=== PATIENT | female | born 1990 | race Caucasian/White ===

== ENCOUNTER 2021-03-05 13:48 | Emergency (ER) | payer OTHER, SELFPAY ==
[2021-03-05 13:54] VITALS: BP 156/88; PULSE 110; RESP 16; TEMP 37.1; O2SAT 98; BMI 35.4
--- NOTE | 2021-03-05 14:07 | ED_ITS ---
HPI - Chest Pain General: Chief Complaint: Chest Pain Stated Complaint: Chest Pains for a couple days now, weakness Time Seen by Provider: 03/05/21 14:07 History of Present Illness: HPI narrative: Ms. Sloan is a 31-year-old lady without significant past medical history presents to the emergency department due to chest pain. Onset of symptoms was approximately 3 days ago without specific provoking event identified. She endorses left anterior chest pressure occasionally associated with tingling in the left elbow region. She has had a dry cough for a few weeks now however this is not significantly changed or worsened. No other identified typical cardiac features. Patient is a non- smoker, only identifies history on mother side however no known early cardiac disease. Does have a history of irregular heartbeats. No other specific changes in health, exacerbating, or alleviating factors identified. Review of Systems General: Reports: 10 or more systems reviewed and unremarkable except in HPI and below PFSH ED PFSH: Medical History (Updated 03/09/21 @ 20:54 by Paop Lin MD) No significant medical problems Surgical History (Updated 03/09/21 @ 20:54 by Papo Lin MD) No significant past surgical history No significant past surgical history Female Reproductive History: Date of last menstrual period: 02/25/21 Physical Exam Narrative: EXAM NARRATIVE: GENERAL/CONSTITUTIONAL - well-appearing. Eyes -no scleral icterus, no conjunctival injection ENMT - Atraumatic external nose and ears. Moist mucous membranes NECK - supple. trachea midline CARDIOVASCULAR - tachycardic rate and regular rhythm. No peripheral edema RESPIRATORY -clear to auscultation bilaterally. ABDOMEN/GI - Nontender/Nondistended. MSK - Extremities without obvious deformity or tenderness to palpation SKIN - Warm, Dry NEURO - alert and appropriately oriented. Moves all extremities equally. Course ED course: - Patient was seen and evaluated by me at bedside - Patient placed on cardiac monitors, IV access obtained - Initial evaluation notable for tachycardia -Fluids ordered - Labs notable for no leukocytosis, likely mild hemoconcentration. No acute electrolyte abnormality. Troponin negative with >6 hours of symptoms. Covid negative. D-dimer negative. - Imaging notable for no acute findings - Upon serial reexamination after treatment the patient was mildly - Based on patient history, evaluation, labs, and imaging as interpreted the most likely cause of the patient's condition is unspecified chest pain. - The results of ED evaluation were discussed with the patient including prescriptions and/or symptomatic cares (if applicable) including appropriate and responsible use, followup plan, and return precautions. The patient verbalized understanding and felt safe for discharge. - Patient discharged in satisfactory condition. Vital Signs: Vital signs: Vital Signs Temperature 98.7 F 03/05/21 13:54 Pulse Rate 72 03/05/21 17:27 Respiratory Rate 20 H 03/05/21 17:05 Blood Pressure 130/82 03/05/21 17:05 Pulse Oximetry 99 03/05/21 17:27 MDM - Chest Pain MDM Narrative: Medical decision making narrative: Patient presents with 3 days of chest pain, mildly positional left anterior chest. Does not have significant risk factors for early cardiac . D-dimer negative. Appropriate for outpatient evaluation/work-up. Medical Records: Attestation: I reviewed the patient's medical records. Lab Data: Attestation: I reviewed the patient's lab results. Labs: Lab Results 03/05/21 03/05/21 03/05/21 14:34 14:34 14:34 WBC 10.0 10^3/uL 10^3 /uL (4.0-10.0) RBC 5.26 10^6/uL 10^6 /uL (4.1-5.3) Hgb 15.5 g/dL H g/dL (11.5-15.3) Hct 46.2 % % (37.0-47.0) MCV 87.8 fl fl (81-99) MCH 29.5 pg pg (28.0-34.0) MCHC 33.5 g/dL g/dL (30.0-36.0) RDW 12.1 % % (12.1-15.1) Plt Count 267 10^3/cmm 10^3 /cmm (130-400) MPV 11.0 fL H fL (7.4-10.4) Neut % (Auto) 81.1 % % Lymph % (Auto) 13.0 % % [place] % (Auto) 4.2 % % Eos % (Auto) 1.0 % % Baso % (Auto) 0.5 % % Neut # (Auto) 8.14 10^3/uL H 10 ^3/uL (1.8-7.7) Lymph # (Auto) 1.3 10^3/uL 10^3/ uL (0.8-4.8) [place] # (Auto) 0.4 10^3/uL 10^3/ uL (0.2-0.9) Eos # (Auto) 0.1 10^3/uL 10^3/ uL (0.0-0.8) Baso # (Auto) 0.1 10^3/uL 10^3/ uL (0.0-0.1) Nucleated RBC % (a uto) 0 % % Nucleated RBCs # 0.0 /100WBC /100W BC D-Dimer Sodium 138 mmol/L mmol/L (136-145) Potassium 4.6 mmol/L mmol/L (3.5-5.1) Chloride 102 mmol/L mmol/L (98-107) Carbon Dioxide 25 mmol/L mmol/L (22-29) Anion Gap 15.6 (5-19) BUN 13 mg/dL mg/dL (6-20) Creatinine 0.6 mg/dL mg/dL (0.5-0.9) GFR Calculation 117.4 mL/min mL/m in (90-130) Glucose 95 mg/dL mg/dL (65-115) Calculated Osmolal ity 286 mOsm/kg mOsm/ kg (285-295) Calcium 8.9 mg/dL mg/dL (8.5-10.5) Total Bilirubin 0.8 mg/dL mg/dL (0.15-1.2) AST 18 U/L U/L (0-32) ALT 21 U/L U/L (0-33) Alkaline Phosphata se 58 IU/L IU/L (35-105) Troponin T Baselin e 6 ng/L ng/L (0-10) Total Protein 7.5 g/dL g/dL (6.6-8.7) Albumin 4.6 g/dL g/dL (3.5-5.2) Globulin 2.9 g/dL g/dL (1.3-4.6) SARS-CoV-2 Ag (Rap id) 03/05/21 03/05/21 14:34 14:52 WBC RBC Hgb Hct MCV MCH MCHC RDW Plt Count MPV Neut % (Auto) Lymph % (Auto) [place] % (Auto) Eos % (Auto) Baso % (Auto) Neut # (Auto) Lymph # (Auto) [place] # (Auto) Eos # (Auto) Baso # (Auto) Nucleated RBC % (a uto) Nucleated RBCs # D-Dimer <= 0.27 ug/mIFEU ug/mIFEU (0-0.59) Sodium Potassium Chloride Carbon Dioxide Anion Gap BUN Creatinine GFR Calculation Glucose Calculated Osmolal ity Calcium Total Bilirubin AST ALT Alkaline Phosphata se Troponin T Baselin e Total Protein Albumin Globulin SARS-CoV-2 Ag (Rap id) Negative (Negative) EKG Data^: EKG 1: Attestation: I personally reviewed and interpreted this EKG as follows: EKG interpretation date: 03/05/21 EKG interpretation time: 14:06 Interpretation: Twelve-lead EKG shows a regular rhythm at a rate of 78. NE interval 117, QRS duration 94, QTc 389. Normal axis. Interpretation: Sinus rhythm. Short NE interval. EKG 2: Attestation: I personally reviewed and interpreted this EKG as follows: EKG interpretation date: 03/05/21 EKG interpretation time: 17:11 Interpretation: Twelve-lead EKG shows a regular rhythm at a rate of 70. NE interval 135, QRS duration 103, QTc 392. Normal axis. Interpretation: Sinus rhythm. Discharge Plan Discharge Patient Disposition: Home Clinical Impression: Chest pain Condition: Stable Prescriptions: No Action No Known Home Medications RF: 0 Discharge Orders: Discharge ED (Routine); Ordered 03/05/21 Ordered By: Papo Lin Discharge Diet: Usual diet Discharge Activity: Resume usual activity Patient Instructions: Chest Pain (ED) Activity Restrictions/Additional Instructions: Thank you for visiting the emergency department. You were seen and evaluated for chest pain. The exact cause of your symptoms is unclear though does not appear to need inpatient management at this time. Please follow-up with your primary care provider and cardiology. Return to the emergency department for worsening symptoms or anything else that you are concerned about and feel needs emergency department evaluation. Coding Level of Care Code ED Tuberculosis Specialist for Brant Acosta
--- NOTE | 2021-03-05 14:28 | XRR_ITS ---
PROCEDURE INFORMATION: Exam: XR Chest Exam date and time: 03/05/2021 2:28 PM Age: 31 years old Clinical indication: Pain; Chest pressure; Additional info: Chest pain TECHNIQUE: Imaging protocol: XR of the chest. Views: 1 view. COMPARISON: No relevant prior studies available. FINDINGS: Lungs: Unremarkable. No consolidation. Pleural spaces: Unremarkable. No pleural effusion. No pneumothorax. Heart/Mediastinum: Unremarkable. No cardiomegaly. Bones/joints: No acute findings. XR/XR chest 1V portable [id number] IMPRESSION: No acute findings.
--- NOTE | 2021-03-05 14:28 | ECG_ITS ---
[facility] Test Date: 2021-03-05 Pat Name: Megan Sloan Department: Room: Gender: Female Supervisor Firearms: : 1990 Requested By: Papo Lni Order Number: [id number] Keysha MD: Jean Christian M.D. Measurements Intervals [place] Rate: 78 P: 58 ID: 117 QRS: 55 QRSD: 94 T: 62 QT: 355 QTc: 406 Interpretive Statements SINUS RHYTHM WITH SHORT ID INTERVAL INCOMPLETE RIGHT BUNDLE BRANCH BLOCK [90+ ms QRS DURATION, TERMINAL R IN V1/V2, 40+ ms S IN I/aVL/V4/V5/V6] No previous ECG available for comparison Electronically Signed On 03-05-2021 20:21:23 STRATEGIC ACCOUNTS MANAGER by Jean Chrsitian M.D. [id number]
[2021-03-05 14:41] LABS: Basophils # 0.1 10^3/uL (0.0-0.1); Basophils % 0.5 %; Eosinophils # 0.1 10^3/uL (0.0-0.8); Hematocrit 46.2 % (37.0-47.0); Hemoglobin 15.5 g/dL (11.5-15.3); Lymphocytes # 1.3 10^3/uL (0.8-4.8); Mean Corpuscular HGB Conc 33.5 g/dL (30.0-36.0); Mean Corpuscular Hemoglobin 29.5 pg (28.0-34.0); Mean Corpuscular Volume 87.8 fl (81-99); Monocytes # 0.4 10^3/uL (0.2-0.9); Monocytes % 4.2 %; Neutrophils # 8.14 10^3/uL (1.8-7.7); Neutrophils % 81.1 %; Nucleated Red Blood Cells % 0 %; Platelet Count 267 10^3/cmm (130-400); Red Blood Count 5.26 10^6/uL (4.1-5.3); Red Cell Distribution Width 12.1 % (12.1-15.1)
[2021-03-05 14:42] VITALS: BP 150/83; PULSE 79; RESP 14; O2SAT 94
[2021-03-05 14:52] VITALS: BP 150/83; PULSE 71; RESP 14; O2SAT 94
[2021-03-05 15:02] LABS: Alanine Aminotransferase 21 U/L (0-33); Albumin Level 4.6 g/dL (3.5-5.2); Alkaline Phosphatase 58 IU/L (35-105); Aspartate Amino Transferase 18 U/L (0-32); Blood Urea Nitrogen 13 mg/dL (6-20); Calcium 8.9 mg/dL (8.5-10.5); Carbon Dioxide 25 mmol/L (22-29); Chloride 102 mmol/L (98-107); Creatinine Clr Calc Pharmacy 152.0855; Globulin 2.9 g/dL (1.3-4.6); Glomerular Filtration Rate 117.4 mL/min (90-130); Glucose 95 mg/dL (65-115); Osmolality Calculated 286 mOsm/kg (285-295); Sodium 138 mmol/L (136-145); Total Bilirubin 0.8 mg/dL (0.15-1.2); Total Protein 7.5 g/dL (6.6-8.7)
[2021-03-05 15:03] LABS: Troponin(5th) Baseline 6 ng/L (0-10)
[2021-03-05 15:30] LABS: Anion Gap 15.6 (5-19); Potassium 4.6 mmol/L (3.5-5.1)
[2021-03-05 15:43] VITALS: BP 133/88; PULSE 76; RESP 16; O2SAT 95
[2021-03-05 16:04] LABS: SARS Covid-2 Antigen Negative (Negative)
--- NOTE | 2021-03-05 16:28 | ECG_ITS ---
[facility] Test Date: 2021-03-05 Pat Name: Megan Sloan Department: Room: Gender: Female Measurement Supervisor: : 1990 Requested By: Papo Lin Order Number: [id number] Keysha MD: Jean Christian M.D. Measurements Intervals [place] Rate: 70 P: 42 NM: 135 QRS: 41 QRSD: 103 T: 60 QT: 372 QTc: 402 Interpretive Statements SINUS RHYTHM INCOMPLETE RIGHT BUNDLE BRANCH BLOCK [90+ ms QRS DURATION, TERMINAL R IN V1/V2, 40+ ms S IN I/aVL/V4/V5/V6] Compared to ECG 03/05/2021 13:58:46 Short NM interval no longer present Electronically Signed On 03-05-2021 20:23:22 DRAW STRING KNOTTER by Jean Christian M.D. [id number]
[2021-03-05 17:05] VITALS: BP 130/82; PULSE 72; RESP 20; O2SAT 97
[2021-03-05 17:08] LABS: D Dimer <= 0.27 ug/mIFEU (0-0.59)
[2021-03-05 17:27] VITALS: PULSE 72; O2SAT 99
--- NOTE | 2021-03-06 12:28 | DCPLANNER ---
Addendum entered by Janina Kathleen 04/06/21 16:51: Patient had a follow up appointment scheduled for 03.22.21 with [facility] - patient did not attend appointment. Addendum entered by Janina Kathleen 03/06/21 12:38: manager of recruiting also gave patient the phone number to the clinic, if patient needs to cancel the appointment. Original Note: manager of recruiting had message to schedule a follow up appointment for patient with [facility]. manager of recruiting called the [facility] clinic, spoke with Erika Chambers, gave clinic patients information, a follow up appointment was scheduled for Monday, March 22, 2021 at 1:[address] Soares. manager of recruiting spoke with patient, gave her the appointment information.
== END 2021-03-05 17:29 | disposition home or self-care (01) ==
PROVIDERS: Emergency Provider Emergency Medicine
DX: R07.9 Chest pain, unspecified (principal); Z20.822 Contact with and (suspected) exposure to COVID-19
CPT/HCPCS: 71045; 80053; 84484; 85025; 85378; 87426; 93005; 99284

== ENCOUNTER 2021-11-22 11:11 | Emergency (ER) | payer SELFPAY ==
[2021-11-22 11:36] VITALS: BP 131/86; PULSE 79; RESP 14; TEMP 36.9; O2SAT 97; BMI 32.1
--- NOTE | 2021-11-22 12:52 | ECG_ITS ---
[facility] Test Date: 2021-11-22 Pat Name: Megan Sloan Department: Room: Gender: Female Consultant Technology: : 1990 Requested By: Roly Del Rosario Order Number: [id number] Keysha MD: Diane Soares M.D. Measurements Intervals [place] Rate: 72 P: 51 VT: 132 QRS: 41 QRSD: 109 T: 44 QT: 343 QTc: 378 Interpretive Statements SINUS RHYTHM Compared to ECG 03/05/2021 17:05:43 Incomplete right bundle-branch block no longer present Electronically Signed On 11-22-2021 20:25:10 CDT by Diane Soares M.D. [id number]
== END 2021-11-22 17:32 | disposition left against medical advice (07) ==
PROVIDERS: Emergency Provider Family Medicine; PCP Family Medicine
DX: Z53.21 Procedure and treatment not carried out due to patient leaving prior to being seen by health care provider (principal); R07.9 Chest pain, unspecified
CPT/HCPCS: 93005

== ENCOUNTER → 2021-11-24 10:27 | Outpatient (BNVA) | payer SELFPAY | PROVIDERS: PCP Family Medicine; Visit Provider Family Medicine | DX: F32.A Depression, unspecified (principal); Z13.220 Encounter for screening for lipoid disorders; Z51.81 Encounter for therapeutic drug level monitoring | CPT/HCPCS: 80053; 80061; 85025 ==

== ENCOUNTER 2021-11-27 13:32 | Outpatient (CLI) | payer OTHER, SELFPAY ==
[2021-11-27 14:32] LABS: Free T4 Free Thyroxine 1.23 ng/dL (0.82-1.77); T3 Free 2.9 PG/ML (2.0-4.4); Thyroid Stimulating Hormone 0.76 uIU/mL (0.27-4.20)
== END 2021-11-27 13:33 | disposition home or self-care (01) ==
PROVIDERS: PCP Family Medicine; Visit Provider Internal Medicine
DX: E03.9 Hypothyroidism, unspecified (principal); E07.89 Other specified disorders of thyroid; R53.81 Other malaise; R53.83 Other fatigue
CPT/HCPCS: 36415; 84439; 84443; 84481